=== PATIENT | male | born 1965 | race Caucasian/White ===

== ENCOUNTER 2018-03-26 22:58 | Inpatient (IN) | payer BC, OTHER ==
[~2018-03-26] VITALS: Ht 172.7 cm; Wt 108.9 kg
--- NOTE | ~2018-03-26 | EKG ---
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
[2018-03-26 23:10] VITALS: BP 146/85
[2018-03-26 23:38] LABS: ABSOLUTE NEUTROPHILS 9.2 thou/uL (1.4-8.2); BASOPHILS 0.4 % (0.0-2.0); EOSINOPHILS 0.1 % (0.0-3.0); HEMATOCRIT 46.5 % (42.0-52.0); HEMOGLOBIN 16.3 gm/dL (14.0-18.0); LYMPHOCYTES 13.7 % (24.0-44.0); MCH 30.3 pg (26.0-34.0); MCV 86.4 fL (80.0-100.0); PLATELET COUNT 253 thou/uL (150-400); POLYS 78.8 % (36.0-66.0); RBC 5.39 mil/uL (4.50-6.00); RDW 13.3 % (10.5-14.5); WBC 11.7 thou/uL (4.0-11.0)
[2018-03-26 23:42] LABS: ANION GAP 11 mmol/L (7-16); BUN 24 mg/dL (7-18); CALCIUM 9.9 mg/dL (8.5-10.1); CHLORIDE 101 mmol/L (98-107); CO2 22 mmol/L (21-32); CREATININE 2.1 mg/dL (0.7-1.3); GLUCOSE 138 mg/dL (74-106); POTASSIUM 5.1 mmol/L (3.5-5.1); SODIUM 134 mmol/L (136-145)
[2018-03-26 23:55] LABS: ALBUMIN 4.3 g/dL (3.4-5.0); LIPASE 107 U/L (73-393); SGOT 67 U/L (15-37); SGPT 105 U/L (30-65); TOTAL BILIRUBIN 0.6 mg/dL (<0.1-1.0); TOTAL PROTEIN 9.2 g/dL (6.4-8.2); TROPONIN-I <0.06 ng/mL (<0.06)
[2018-03-27 01:27] LABS: URINE BILIRUBIN NEGATIVE (Negative); URINE BLOOD NEGATIVE (Negative); URINE CLARITY CLEAR; URINE COLOR YELLOW; URINE GLUCOSE-RANDOM* NEGATIVE (Negative); URINE KETONES NEGATIVE (Negative); URINE LEUKOCYTES-REFLEX NEGATIVE (Negative); URINE NITRITE-REFLEX NEGATIVE (Negative); URINE PROTEIN (DIPSTICK) NEGATIVE (Negative); URINE SPECIFIC GRAVITY 1.015 (1.005-1.035); URINE UROBILINOGEN 0.2 E.U./dl (0.2-1.0)
[2018-03-27 02:51] VITALS: BP 141/96
[2018-03-27 03:03] VITALS: BP 109/61
[2018-03-27] MEDS ORDERED: RESTORIL30 MG PO (03:24)
[2018-03-27] MEDS ORDERED: XANAX 0.5 MG0.5 MG PO (03:26)
[2018-03-27] MEDS ORDERED: PERCOCET 7.5-31 EACH PO (03:27)
[2018-03-27] MEDS ORDERED: GABAPENTIN 100100 MG PO (03:30)
[2018-03-27] MEDS ORDERED: DICLOFENAC SODI75 MG PO (03:31)
[2018-03-27] MEDS ORDERED: ACYCLOVIR 400400 MG PO (03:31)
[2018-03-27] MEDS ORDERED: ACYCLOVIR15 GM TP (03:31)
[2018-03-27] MEDS ORDERED: OXYCODONE HCL 55 MG PO (03:33)
[2018-03-27 03:37] VITALS: BP 117/66
[2018-03-27 04:14] VITALS: BP 117/66
[2018-03-27 08:15] VITALS: BP 142/95
[2018-03-27 20:32] VITALS: BP 146/80
[2018-03-28 05:46] LABS: ALBUMIN 3.7 g/dL (3.4-5.0); CALCIUM 8.4 mg/dL (8.5-10.1); MAGNESIUM 1.9 mg/dL (1.8-2.4); POTASSIUM 4.3 mmol/L (3.5-5.1); TOTAL BILIRUBIN 0.6 mg/dL (<0.1-1.0); TOTAL PROTEIN 8.2 g/dL (6.4-8.2)
[2018-03-28 08:11] VITALS: BP 121/71
[2018-03-28 10:23] VITALS: BP 121/71
[2018-03-28 13:08] LABS: HAV IgM AB (ANTI-HAV IgM) Negative (Negative); HEPATITIS B SURFACE AG Negative (Negative); HEPATITIS C VIRUS AB >11.0 (0.0-0.9)
== END 2018-03-28 10:58 | disposition home or self-care (01) | DRG 683 ==
LOC: ER 22:58 → 4W 03-27 02:17 → EROBS 03-27 02:17 → 4W 03-27 03:04
PROVIDERS: Nurse Practitioner Acute Care; Student in an Organized Health Care Education/Training Program
DX: N17.9 Acute kidney failure, unspecified (principal); M62.82 Rhabdomyolysis; E86.0 Dehydration; R74.0 Nonspecific elevation of levels of transaminase and lactic acid dehydrogenase [LDH]; Z90.49 Acquired absence of other specified parts of digestive tract; Z23 Encounter for immunization; Z79.899 Other long term (current) drug therapy
CPT/HCPCS: 10040

== ENCOUNTER 2018-06-11 23:13 | Emergency (ER) | payer BC, OTHER ==
[~2018-06-11] VITALS: Ht 172.7 cm; Wt 113.4 kg
--- NOTE | ~2018-06-11 | EKG ---
[address] [place] [address] ELECTROCARDIOGRAM REPORT Name: LINH RODRIGUEZ [id number] Admission: 06/11/18 Attend Phys: Discharge: Date of : 61 Report #: [id number] REPORT FOR: //name// [facility] ED Test Date: 2018-06-11 Test Time: 23:29:37 Pat Name: LINH RODRIGUEZ Department: Room: Gender: Regional Maintenance Manager: sherri : 1965 Requested By: Marli Nichols Order Number: [id number] MD: Guzman Avalos Measurements Intervals [place] Rate: 72 P: 30 [place]: 142 QRS: -43 QRSD: 98 T: 53 QT: 388 QTc: 425 Interpretive Statements Sinus rhythm Left axis deviation Baseline wander in lead(s) V2 No previous ECG available for comparison Electronically Signed On 06-12-2018 8:37:14 [employer] INST[employer]ER by Guzman Avalos [email or web address] <ELECTRONICALLY SIGNED> By: Guzman Avalos MD, [facility] 06/12/18 0837 [id number] Guzman Avalos MD, FACC /EPI
[~2018-06-11 23:13] MED LIST: ACYCLOVIR 400400 MG PO; ACYCLOVIR15 GM TP; DICLOFENAC SODI75 MG PO; GABAPENTIN 100100 MG PO; OXYCODONE HCL 55 MG PO; PERCOCET 7.5-31 EACH PO; RESTORIL30 MG PO; XANAX 0.5 MG0.5 MG PO
[2018-06-11 23:48] LABS: HEMATOCRIT 43.7 % (42.0-52.0); HEMOGLOBIN 15.4 gm/dL (14.0-18.0); MCH 30.2 pg (26.0-34.0); MCHC 35.2 g/dL (28.0-37.0); MCV 85.7 fL (80.0-100.0); PLATELET COUNT 191 thou/uL (150-400); RBC 5.09 mil/uL (4.50-6.00); WBC 7.5 thou/uL (4.0-11.0)
[2018-06-11 23:58] LABS: ANION GAP 11 mmol/L (7-16); BUN 15 mg/dL (7-18); CALCIUM 8.5 mg/dL (8.5-10.1); CHLORIDE 102 mmol/L (98-107); CO2 26 mmol/L (21-32); GLUCOSE 101 mg/dL (74-106); POTASSIUM 3.9 mmol/L (3.5-5.1); SODIUM 139 mmol/L (136-145)
[2018-06-12 00:06] LABS: ALBUMIN 3.7 g/dL (3.4-5.0); SGOT 56 U/L (15-37); SGPT 76 U/L (30-65); TOTAL BILIRUBIN 0.8 mg/dL (<0.1-1.0); TROPONIN-I <0.06 ng/mL (<0.06)
[2018-06-12 00:21] LABS: ABSOLUTE NEUTROPHILS 4.1 thou/uL (1.4-8.2)
[2018-06-12 00:23] LABS: PLATELET ESTIMATE NORMAL
[2018-06-12] MEDS ORDERED: DOXYCYCLINE 10100 MG PO (01:03)
[2018-06-12] MEDS ORDERED: VENTOLIN HFA 1818 GM INH (01:03)
[2018-06-12] MEDS ORDERED: IPRAT-ALBUT 0.5-3 ML INH (01:03)
[2018-06-12 01:45] VITALS: BP 138/70
== END 2018-06-12 01:35 | disposition home or self-care (01) ==
LOC: ER 23:13
PROVIDERS: Student in an Organized Health Care Education/Training Program
DX: J40 Bronchitis, not specified as acute or chronic (principal); F17.210 Nicotine dependence, cigarettes, uncomplicated; Z90.49 Acquired absence of other specified parts of digestive tract

== ENCOUNTER 2019-03-19 11:16 | Emergency (ER) | payer OTHER, BC ==
[~2019-03-19] VITALS: Ht 172.7 cm; Wt 104.3 kg
[~2019-03-19 11:16] MED LIST changes: +DOXYCYCLINE 10100 MG PO; +IPRAT-ALBUT 0.5-3 ML INH; +VENTOLIN HFA 1818 GM INH
[2019-03-19] MEDS ORDERED: NORCO 5-325 TA1 EAC1 PO (12:19)
[2019-03-19] MEDS ORDERED: KEFLEX500 M1 PO (12:19)
[2019-03-19 13:05] VITALS: BP 131/83
== END 2019-03-19 13:40 | disposition home or self-care (01) ==
LOC: ER 11:16
DX: S67.02XA Crushing injury of left thumb, initial encounter (principal); S62.522B Displaced fracture of distal phalanx of left thumb, initial encounter for open fracture; F17.210 Nicotine dependence, cigarettes, uncomplicated; F41.9 Anxiety disorder, unspecified; G89.29 Other chronic pain; Z90.49 Acquired absence of other specified parts of digestive tract; W23.1XXA Caught, crushed, jammed, or pinched between stationary objects, initial encounter; Y92.89 Other specified places as the place of occurrence of the external cause; Y93.89 Activity, other specified; Y99.8 Other external cause status

== ENCOUNTER 2021-03-15 10:32 | Inpatient (IN) | payer OTHER ==
[~2021-03-15] VITALS: Ht 172.7 cm; Wt 113.4 kg
[~2021-03-15 10:32] MED LIST changes: +KEFLEX500 M1 PO; +NORCO 5-325 TA1 EAC1 PO
[2021-03-15 10:33] VITALS: BP 133/69
[2021-03-15 11:20] LABS: ABSOLUTE NEUTROPHILS 6.8 thou/uL (1.4-8.2); BASOPHILS 0.3 % (0.0-2.0); EOSINOPHILS 0.1 % (0.0-3.0); HEMATOCRIT 38.4 % (42.0-52.0); LYMPHOCYTES 11.1 % (24.0-44.0); MCH 29.1 pg (26.0-34.0); MCHC 33.8 g/dL (28.0-37.0); MCV 85.9 fL (80.0-100.0); MONOCYTES 8.1 % (1.0-8.0); PLATELET COUNT 241 thou/uL (150-400); POLYS 80.4 % (36.0-66.0); RBC 4.47 mil/uL (4.50-6.00); RDW 13.3 % (10.5-14.5); WBC 8.5 thou/uL (4.0-11.0)
[2021-03-15 11:34] LABS: CALCIUM 8.6 mg/dL (8.5-10.1); CREATININE 1.2 mg/dL (0.7-1.3); POTASSIUM 4.4 mmol/L (3.5-5.1)
[2021-03-15 11:44] LABS: TOTAL BILIRUBIN 0.6 mg/dL (0.2-1.0); TOTAL PROTEIN 8.3 g/dL (6.4-8.2)
[2021-03-15] MEDS ORDERED: ALPRAZOLAM 0.50.5 M1 PO (13:44)
[2021-03-15] MEDS ORDERED: DIAZEPAM 10 MG10 M2 PO (13:45)
[2021-03-15 13:52] VITALS: BP 111/60
[2021-03-15 14:13] VITALS: BP 131/69
[2021-03-15 14:39] VITALS: BP 117/97
[2021-03-15 14:41] VITALS: BP 117/97
[2021-03-15 18:14] LABS: FOLIC ACID 24.8 ng/mL (8.6-58.9)
[2021-03-15 19:24] VITALS: BP 114/62
--- NOTE | 2021-03-15 19:31 | NUR ---
PT ARRIVED TO FLOOR FROM ED PER CART AROUND 1439 IN STABLE CONDITION. ADMISSION HX, ASSESSMENT AND CARE PLAN COMPLETED.PT C/O HEADACHE .TYLENOL PO GIVEN WITH XANAX. SIG.OTHER HERE TO VISIT.UPDATES GIVEN.REPORT OFF TO NILTON CARBALLO.
[2021-03-16 05:01] LABS: ABSOLUTE NEUTROPHILS 5.7 thou/uL (1.4-8.2); BASOPHILS 0.2 % (0.0-2.0); HEMATOCRIT 37.3 % (42.0-52.0); HEMOGLOBIN 12.8 gm/dL (14.0-18.0); LYMPHOCYTES 7.9 % (24.0-44.0); MCH 29.7 pg (26.0-34.0); MCHC 34.3 g/dL (28.0-37.0); MCV 86.5 fL (80.0-100.0); MONOCYTES 2.6 % (1.0-8.0); PLATELET COUNT 243 thou/uL (150-400); POLYS 89.3 % (36.0-66.0); RBC 4.31 mil/uL (4.50-6.00); RDW 13.8 % (10.5-14.5); WBC 6.3 thou/uL (4.0-11.0)
--- NOTE | 2021-03-16 05:14 | NUR ---
Assumed pt care at 1900. A/OX4,drowsy but easily arousable. VSS. C/o a headache after coughing,medicated per EMAR with relief reported. Pt unsteady when up,prompted to call when in need to void and doing so. SBA/IV pole to the bathroom. Does have a congested cough,non productive,lung sounds coarse. Resting quietly eyes closed at this time,snoring loudly. Will continue to monitor pt.
[2021-03-16 05:15] LABS: CALCIUM 8.5 mg/dL (8.5-10.1); MAGNESIUM 2.9 mg/dL (1.8-2.4); POTASSIUM 4.4 mmol/L (3.5-5.1)
[2021-03-16 06:06] LABS: GLYCOHEMOGLOBIN (HGB A1C) 6.3 % (4.8-5.6)
[2021-03-16 07:47] VITALS: BP 131/83
--- NOTE | 2021-03-16 11:39 | NUR ---
Assumed pt care at 7am.Pt in and out of bed to bathroom independently. Assessment completed. vss. Pt c/o headache and diarrhea. Tylenol po given with am meds. Dr Wallace here, notified about pt frequent stool. Order noted.Imodium will be given when made available by pharmacy. Pericare cream given to pt to apply to fady area. Will continue to monitor.
[2021-03-16 19:15] LABS: URINE BILIRUBIN NEGATIVE (Negative); URINE BLOOD NEGATIVE (Negative); URINE CLARITY CLEAR; URINE COLOR YELLOW; URINE GLUCOSE-RANDOM* NEGATIVE (Negative); URINE KETONES NEGATIVE (Negative); URINE LEUKOCYTES-REFLEX NEGATIVE (Negative); URINE NITRITE-REFLEX NEGATIVE (Negative); URINE PROTEIN (DIPSTICK) TRACE (Negative); URINE UROBILINOGEN 0.2 E.U./dl (0.2-1.0)
[2021-03-16 20:03] VITALS: BP 117/58
--- NOTE | 2021-03-17 03:07 | NUR ---
ASSUMED CARE OF PT AT SHIFT CHANGE. PT IS AOX4 AND LETS NEEDS BE KNOWN. PT IS UP AD [facility]. PT REPORTS COUGHING AND DIARRHEA. CDIFF SAMPLE COLLECTED. SCHEDULED BREATHING TREATMENT CONTINUED. PT DENIED PAIN, NAUSEA OR SOA. ASSESSMNET CHARTED. ELEVATED FSBG NOTED, PT MAY REQUIRE MODERATRE INSULIN SLILIDING SCALE. PT WAS ABLE TO GET COMFORTABLE AND SLEEP PART OF THE SHIFT. VSS AND NO S/S OF ACUTE DISTRESS. WILL CONTINUE TO MONITOR.
[2021-03-17 10:15] VITALS: BP 117/58
--- NOTE | 2021-03-17 14:40 | NUR ---
PT ADMITTED RELATED TO PNA, SEPSIS, AND FEVER. CM MET WITH PT AT BEDSIDE YESTERDAY. PT APPEARED TO BE A&O X4. CM ROLE INTRODUCED. PT INDICATED HE LIVES IN A HOUSE WITH HIS DAD AND 15YR OLD DTR. HE INDICATED 4 STEPS TO ENTER AND NO STEPS INSIDE. PT DOESN'T HAVE ANY INSURANCE HE IS A [employer] AND QUALIFIES BUT IT ISN'T ACTIVE YET. PT WILL NEED MEDS VOUCHERED AND POSSIBLY A NEBULIZER FOR HOME USE. CM TO VOUCHER NON NARCOTIC MEDS. PT TO DC HOME THIS DAY. NO OTHER CM INTERVENTION INDICATED. CASE CLOSED.
[2021-03-17] MEDS ORDERED: MUCINEX600 MG PO (15:02)
[2021-03-17] MEDS ORDERED: PREDNISONE 20 M20 M1 PO (15:02)
[2021-03-17] MEDS ORDERED: ALBUTEROL0.63 MG/3 INH (15:02)
[2021-03-17] MEDS ORDERED: NEBULIZER MISCELL (15:02)
[2021-03-17] MEDS ORDERED: LEVOFLOXACIN500 MG PO (15:02)
[2021-03-17 15:20] VITALS: BP 117/58
[2021-03-17 16:52] VITALS: BP 128/85
--- NOTE | 2021-03-17 16:55 | NUR ---
ASSUMED CARE OF PT AT 0700 THIS MORNING. PT IS A/OX4 AND C/O SOA AND DRY COUGH. ASSESSMENT NOTED IN CHART AND OTHERWISE UNREMARKABLE. PT IS INDEP AMBULATION. CALL LIGHT AND OTHER NEEDS ARE IN REACH. PT IS GETTING DISCHARGED IF APPROVED BY HCP'S. MEDS AND TX GIVEN NEEDED AND SCHEDULED. WILL MONITOR AN NOTE ANY CHANGES.
== END 2021-03-17 18:27 | disposition home or self-care (01) | DRG 193 ==
LOC: ER 10:32 → EROBS 12:58 → 4W 14:14
PROVIDERS: Emergency Medicine; Nurse Practitioner; ADMIT Hospitalist; ATTEND Hospitalist
DX: J18.9 Pneumonia, unspecified organism (principal); J96.01 Acute respiratory failure with hypoxia; Z20.822 Contact with and (suspected) exposure to COVID-19; F41.9 Anxiety disorder, unspecified
CPT/HCPCS: 10040